=== PATIENT | female | born 1990 | race African-American/Black ===

== ENCOUNTER 2020-10-06 22:05 | Emergency (ER) | payer OTHER ==
[~2020-10-06] VITALS: Ht 167.6 cm; Wt 65.8 kg
[2020-10-06 22:05] VITALS: BP 110/72
[2020-10-06] MEDS ORDERED: LIDOCAINE /MPF 1% VIAL 5 ML VIAL ONE (22:53)
[2020-10-06] MEDS ORDERED: CEFTRIAXONE 1 G VIAL ONE (22:53)
[2020-10-06] MEDS ORDERED: FLUCONAZOLE (100 MG) 100 MG TABLET ONE (22:54)
[2020-10-06] MEDS ORDERED: METR-147 PO (22:59)
[2020-10-06] MEDS ORDERED: DOXY100C2 PO (22:59)
[2020-10-06] MEDS ORDERED: CEFTRIAXONE 1 G VIAL IM ONE (23:00)
[2020-10-06] MEDS ORDERED: FLUCONAZOLE (100 MG) 100 MG TABLET PO ONE (23:00)
== END 2020-10-07 00:32 | disposition home or self-care (01) ==
LOC: ER 22:13
DX: N76.0 Acute vaginitis (principal); Z20.2 Contact with and (suspected) exposure to infections with a predominantly sexual mode of transmission
CPT/HCPCS: 87491; 87591; 96372; 99283; J0696; J3490

== ENCOUNTER 2020-11-15 09:16 | Emergency (ER) | payer OTHER ==
[~2020-11-15] VITALS: Ht 167.6 cm; Wt 68.0 kg
[~2020-11-15 09:16] MED LIST: DOXY100C2 PO; METR-147 PO
--- NOTE | 2020-11-15 09:26 | NUR ---
to er bed 16, heavy vaginal bleeding since yesterday. started w/ spotting 2 days prior. blood clots at 4am this morning.
--- NOTE | 2020-11-15 09:35 | NUR ---
LAB AT BEDSIDE
--- NOTE | 2020-11-15 09:40 | NUR ---
US AT BEDSIDE
[2020-11-15 09:46] LABS: BASOPHILS % (AUTO) 0.6 % (0.0-2.0); EOSINOPHILS % (AUTO) 1.6 % (0.0-6.0); HEMATOCRIT 36 % (33-45); HEMOGLOBIN 12.4 g/dL (11.5-14.8); LYMPHOCYTES # (AUTO) 1.3 K/uL (0.8-4.8); LYMPHOCYTES % (AUTO) 28.3 % (20.0-44.0); MEAN CORPUSCULAR HGB CONC 34 g/dl (31.0-36.0); MEAN CORPUSCULAR VOLUME 88 fL (82-100); MONOCYTES # (AUTO) 0.4 K/uL (0.1-1.30); NEUTROPHILS # (AUTO) 2.7 K/uL (1.8-8.9); NEUTROPHILS % (AUTO) 59.5 % (43.0-81.0); PLATELET COUNT (AUTO) 198 K/uL (150-450); RED BLOOD CELL COUNT(AUTO) 4.11 MIL/uL (4.0-5.2); WHITE BLOOD COUNT (AUTO) 4.5 K/uL (4.3-11.0)
--- NOTE | 2020-11-15 09:59 | NUR ---
URINE COLLECTED AND SENT TO LAB
[2020-11-15 10:04] LABS: BILIRUBIN,URINE Negative (NEGATIVE); COLOR,URINE DARK YELLOW (YELLOW); LEUKOCYTE ESTERASE ,URINE Negative (NEGATIVE); NITRITE, URINE Negative (NEGATIVE); PROTEIN,URINE 30 mg/dl (NEGATIVE); UGLUCOSE Negative (NEGATIVE); UROBILINOGEN,URINE 0.2 EU/dL (0.2)
[2020-11-15 10:18] VITALS: BP 124/80
[2020-11-15 10:18] LABS: RBC,URINE 51-80 /HPF (0-2); WBC,URINE 0-3 /HPF (0-3)
[2020-11-15 10:19] LABS: BACTERIA,URINE Few /HPF (None Seen); SQUAMOUS EPITHELIAL CELL,UR Few /HPF (None Seen)
== END 2020-11-15 10:18 | disposition home or self-care (01) ==
LOC: ER 09:21
DX: N92.0 Excessive and frequent menstruation with regular cycle (principal); Z79.899 Other long term (current) drug therapy
CPT/HCPCS: 36415; 76856-TC; 81001; 84702-TC; 85025-TC

== ENCOUNTER 2020-12-20 00:35 | Emergency (ER) | payer MEDICAID ==
[~2020-12-20] VITALS: Ht 167.6 cm; Wt 68.0 kg
--- NOTE | 2020-12-20 00:40 | NUR ---
PATIENT BIBS FROM HOME WITH C/O PAIN IN RECTAL AREA FOR THE PAST 3 DAYS. PT IS AAO X 4, BREATHING EVEN AND UNLABORED. PREPARED PATIENT FOR EXAMINATION BY DR VELASCO, ATTACHED TO MONITOR AND PULSE OX. WILL CONTINUE TO MONITOR
--- NOTE | 2020-12-20 02:00 | NUR ---
DR VELASCO AT BEDSIDE
--- NOTE | 2020-12-20 02:10 | NUR ---
Patient discharged to home in stable condition. Written and verbal after care instructions given. Patient verbalizes understanding of instruction. Patient ambulatory with a steady gait
[2020-12-20 03:26] VITALS: BP 107/71
== END 2020-12-20 02:10 | disposition home or self-care (01) ==
LOC: ER 00:37
DX: L98.419 Non-pressure chronic ulcer of buttock with unspecified severity (principal); Z79.899 Other long term (current) drug therapy

== ENCOUNTER → 2022-03-02 | Emergency (ER) | payer MEDICAID, OTHER ==
[~2022-03-02] VITALS: Ht 167.6 cm; Wt 68.0 kg
[2022-03-02 13:00] VITALS: BP 111/71
--- NOTE | 2022-03-02 13:00 | NUR ---
BIBS C/O LOWWE ABDOMINAL PAIN AND DIARRHEA X 4 DAYS. PAIN 7/10 ON PAIN SCALE. VITALS ARE WITHIN NORMAL LIMITS, NO RESPIRATORY DISTRESS NOTED.
== END | disposition left against medical advice (07) ==
LOC: ER 12:35
DX: Z53.21 Procedure and treatment not carried out due to patient leaving prior to being seen by health care provider (principal)